=== PATIENT | female | born 1960 | race Caucasian/White ===

== ENCOUNTER 2016-12-09 09:41 | Emergency (ER) | payer OTHER ==
[~2016-12-09] VITALS: Ht 162.6 cm; Wt 105.0 kg
[2016-12-09 09:48] VITALS: BP 175/91
[2016-12-09 11:37] LABS: POINT-OF-CARE METER ID UU13113702
[2016-12-09] MEDS ORDERED: ZITHROMAX Z-PA250 MG PO (13:14)
[2016-12-09] MEDS ORDERED: NORCO 5/3251 TABLET PO (13:14)
== END 2016-12-09 13:23 | disposition home or self-care (01) ==
LOC: EME 09:41
PROVIDERS: Physician Assistant
DX: M54.2 Cervicalgia (principal); G89.29 Other chronic pain; H66.92 Otitis media, unspecified, left ear; Z88.0 Allergy status to penicillin
CPT/HCPCS: 73030; 82948; 99281; 99284; J1885

== ENCOUNTER 2017-01-16 06:26 | Emergency (ER) | payer OTHER ==
[~2017-01-16] VITALS: Ht 162.6 cm; Wt 105.9 kg
[~2017-01-16 06:26] MED LIST: NORCO 5/3251 TABLET PO; ZITHROMAX Z-PA250 MG PO
[2017-01-16 07:30] LABS: HEMATOCRIT 41.8 % (36.0-46.0); MCH 29.6 PG (29.0-34.0); MCHC 33.3 G/DL (30.0-36.0); MCV 88.9 FL (83-99); MEAN PLAT.VOLUME 9.9 uM^3 (9.5-12.4); PLATELET COUNT 217 K/uL (156-360); RBC DIS.WIDTH-CV 12.9 % (11.8-14.6); RBC DIS.WIDTH-SD 42.4 % (39-53); WHITE BLOOD COUNT 9.5 K/uL (4.1-10.2)
[2017-01-16 07:37] LABS: CHLORIDE 103 mEq/L (99-109); POTASSIUM 4.1 mEq/L (3.7-5.4); SODIUM 138 mEq/L (136-147)
[2017-01-16 07:39] LABS: GLUCOSE 171 mg/dL (70-99)
[2017-01-16 07:40] LABS: ANION GAP 13 MEQ/L (2-14)
[2017-01-16 07:41] LABS: TOTAL BILIRUBIN 0.3 mg/dL (0.0-1.0)
[2017-01-16 07:43] LABS: ALKALINE PHOSPHATASE 55 IU/L (3-129); GFR ESTIMATE (CALCULATED) > 59 mL/min/
[2017-01-16 07:44] LABS: UREA NITROGEN (BUN) 15 mg/dL (9-23)
[2017-01-16 07:46] LABS: LIPASE 52 U/L (1.0-51.0)
[2017-01-16 07:53] LABS: QUANTITATIVE HCG < 4.0 MIU/ML
[2017-01-16 08:41] LABS: ADD MIUA? NO; BILIRUBIN NEGATIVE; BLOOD NEGATIVE; COLOR STRAW ((YELLOW)); GLUCOSE (STRIP) NEGATIVE; KETONES NEGATIVE; LEUKOCYTES NEGATIVE; NITRITE NEGATIVE; PROTEIN (STRIP) NEGATIVE; SPECIFIC GRAVITY 1.011 (1.000-1.030); UCUL ADDED? NO; UROBILINOGEN 0.2 MG/DL (0.2-1.0)
[2017-01-16 11:05] VITALS: BP 00/00
== END 2017-01-16 11:06 | disposition home or self-care (01) ==
LOC: EME 06:26
PROVIDERS: Emergency Medicine
DX: E86.0 Dehydration (principal); E11.65 Type 2 diabetes mellitus with hyperglycemia; I10 Essential (primary) hypertension; Z88.0 Allergy status to penicillin; Z87.891 Personal history of nicotine dependence
CPT/HCPCS: 80053; 81003; 83605; 83690; 84702; 85027; 99281; 99284; J2405; J7030